=== PATIENT | female | born 1985 | race African-American/Black ===

== ENCOUNTER 2020-08-29 01:42 | Emergency (ER) | payer MEDICAID ==
[~2020-08-29] VITALS: Ht 170.2 cm; Wt 81.6 kg
[2020-08-29 01:45] VITALS: BP 172/118
--- NOTE | 2020-08-29 01:50 | NUR ---
BIBA TO BED 10. PT WAS FOUND AT THE [facility] AND HIS HOMELESS. PT STATES, "I WAS UNDER A TARP, WHEN I WOKE UP MY CHEST HURT WHEN I COUGHED. CONGESTED COUGH IS NOTED PMH :HTN, BIPOLAR NKDA
[2020-08-29] MEDS: ACETAMINOPHEN EXTRA STRENGTH 500 MG TAB PO ONE (02:37)
--- NOTE | 2020-08-29 02:45 | NUR ---
EKG PERFORMED AT BEDSIDE. EKG READS SINUS RHYTHM @ 74
[2020-08-29 03:42] VITALS: BP 172/118
--- NOTE | 2020-08-29 03:42 | NUR ---
Patient discharged with v/s stable. Written and verbal after care instructions given and explained. Patient verbalized understanding. Ambulatory with steady gait. All questions addressed prior to discharge. Advised to follow up with PMD. PANTS AND FOOD GIVEN. PT LEAVES BEING BELIGERANT
== END 2020-08-29 03:42 | disposition home or self-care (01) ==
LOC: MED 01:42
DX: R05 Cough (principal); F17.210 Nicotine dependence, cigarettes, uncomplicated; F31.9 Bipolar disorder, unspecified; I10 Essential (primary) hypertension; F15.10 Other stimulant abuse, uncomplicated; Z59.0 Homelessness
CPT/HCPCS: 93005; 99283

== ENCOUNTER 2020-08-29 09:50 | Emergency (ER) | payer MEDICAID ==
[~2020-08-29] VITALS: Ht 162.6 cm; Wt 65.8 kg
[2020-08-29 09:52] VITALS: BP 115/78
--- NOTE | 2020-08-29 10:10 | NUR ---
[facility] [facility] STATING THAT SHE IS HAVING A MISCARRIAGE, PATIENT STATES THAT SHE IS 5 MONTH AND HAS BEEN HAVING VAGINAL BLEEDING FOR ONE DAY. DENIES ANY PELVIC PAIN AT THIS TIME. VSS. PATIENT STATES SHE IS ON PSYCH MEDS BUT IS UNABLE TO STATE ANY PMH NKDA
--- NOTE | 2020-08-29 10:30 | NUR ---
Ruth swab collected and sent to lab.
[2020-08-29 11:54] VITALS: BP 115/78
--- NOTE | 2020-08-29 11:54 | NUR ---
PATIENT EXAMINED BY DR. JONES. PATIENT MEDICALLY CLEARED AND RELEASED IN CUSTODY IN STABLE CONDITION. ORIGINAL PRE-BOOK FORM GIVEN TO OFFICER KIEL. DISCHARGE INSTRUCTIONS GIVEN TO OFFICER. COPY OF COVID RESULTS PROVIDED.
== END 2020-08-29 11:54 ==
LOC: MED 09:50
DX: R50.9 Fever, unspecified (principal); R10.9 Unspecified abdominal pain; I10 Essential (primary) hypertension; F31.9 Bipolar disorder, unspecified; Z02.89 Encounter for other administrative examinations; Z20.822 Contact with and (suspected) exposure to COVID-19
CPT/HCPCS: 81025; 99283